=== PATIENT | male | born 1980 | race Caucasian/White ===

== ENCOUNTER 2018-10-03 19:53 | Observation (INO) ==
[2018-10-03] MEDS ORDERED: 0.9 % Sodium Chloride 1,000 ML IVC ONE ×3 (20:18→23:05)
[2018-10-03 20:56] LABS: Basophils # 0.1 K/mcL (0.0-0.2); Eosinophils # 0.1 K/mcL (0.0-0.6); Eosinophils % 0.8 %; Hematocrit 36.4 % (37.5-50.1); Hemoglobin 12.6 g/dL (12.9-16.9); Immature Granulocytes % 0.3 % (0-4); Lymphocytes # 2.2 K/mcL (0.6-4.6); Lymphocytes % 29.7 %; Mean Corpuscular HGB Conc 34.6 g/dL (31.6-35.5); Mean Corpuscular Hemoglobin 32.1 pg (28.0-33.3); Mean Corpuscular Volume 92.6 fL (83.0-100.0); Mean Platelet Volume 11.3 fL (9.4-12.4); Monocytes # 0.5 K/mcL (0.0-1.3); Monocytes % 7.3 %; Neutrophils # 4.4 K/mcL (1.6-8.9); Platelet Count 143 K/mcL (140-400); Red Blood Count 3.93 M/mcL (4.19-5.50); Red Cell Distribution Width 12.6 % (11.5-14.5); Segmented Neutrophils % 60.9 %; White Blood Count 7.3 K/mcL (4.3-11.1)
[2018-10-03 20:59] LABS: VBG HCO3 27 mEq/L (21-27); VBG PCO2 45 mmHg (41-51); VBG PH 7.38 pH Units (7.32-7.42); VBG PO2 55 mmHg (25-50)
[2018-10-03 21:12] LABS: Bilirubin,Urine Negative (Negative); Blood,Urine Negative (Negative); Clarity,Urine Clear (Clear); Color,Urine Yellow (Yellow); Glucose,Urine (UA) >=1000 mg/dL (Normal); Ketones,Urine 15 mg/dL (Negative); Leukocyte Esterase,Urine Negative (Negative); Nitrite,Urine Negative (Negative); PH,Urine 6.5 pH Units (5.0-8.0); Protein,Urine Negative (Neg-Trace); Urobilinogen,Urine Normal (Normal)
[2018-10-03] MEDS ORDERED: Insulin Human Regular 10 UNIT in 0.9 % Sodium Chloride 10 ML IV ONE (21:13)
[2018-10-03 21:14] LABS: BUN/Creatinine Ratio 26 (6-26); Blood Urea Nitrogen 20 mg/dL (6-20); Calcium 8.7 mg/dL (8.6-10.3); Carbon Dioxide 26 mEq/L (23-29); Chloride 96 mEq/L (98-107); Glucose 602 mg/dL (70-105); Osmolality,Calculated 301 (280-300); Sodium 130 mEq/L (136-145); eGFR For African Americans > 60 (> 60); eGFR For Non-African Americans > 60 (> 60)
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
[2018-10-03 21:17] LABS: Amphetamine Screen,Urine Positive ng/mL (Cutoff=1000); Barbiturate Screen,Urine Negative ng/mL (Cutoff=200); Benzodiazepines Screen,Urine Negative ng/mL (Cutoff=200); Cannabinoid Screen,Urine Negative ng/mL (Cutoff = 50); Cocaine Screen,Urine Negative ng/mL (Cutoff= 300); Opiate Screen,Urine Negative ng/mL (Cutoff=300); Phencyclidine Screen,Urine Negative ng/mL (Cutoff=25)
[2018-10-04] MEDS ORDERED: Insulin DETEMIR 100 UNIT/ML per UNIT SQ ONE (00:41)
[2018-10-04] MEDS ORDERED: Insulin Regular, Human 100 UNIT/ML SQ ONE (00:42)
[2018-10-04] MEDS ORDERED: 0.9 % Sodium Chloride 1,000 ML IVC SCH (00:45)
[2018-10-04] MEDS ORDERED: Erythromycin OPTH Oint RIGHT EYE ONE (01:37)
[2018-10-04] MEDS ORDERED: Naloxone 0.4 MG/ML INJ IVP PRN ×2 (01:40→02:41)
[2018-10-04] MEDS ORDERED: *HR* Dextrose 50 % in Water (Syg) 50 ML SYRINGE IVP PRN ×2 (01:45→02:41)
[2018-10-04] MEDS ORDERED: D5% in Water 1,000 ML IVC PRN ×2 (01:45→02:41)
[2018-10-04] MEDS ORDERED: Dextrose Gel 15 GM/37.5 ML TUBE PO PRN ×4 (01:45→02:41)
[2018-10-04] MEDS: 0.9 % Sodium Chloride 1,000 ML IVC SCH ×2 (03:30→07:13)
[2018-10-04 06:35] LABS: BUN/Creatinine Ratio 28 (6-26); Blood Urea Nitrogen 15 mg/dL (6-20); Calcium 8.3 mg/dL (8.6-10.3); Carbon Dioxide 26 mEq/L (23-29); Chloride 109 mEq/L (98-107); Glucose 146 mg/dL (70-105); Osmolality,Calculated 293 (280-300); Potassium 3.3 mEq/L (3.5-5.1); Sodium 140 mEq/L (136-145); eGFR For African Americans > 60 (> 60); eGFR For Non-African Americans > 60 (> 60)
[2018-10-04] MEDS: Insulin LISPRO 300 UNITS/3 ML VIAL SQ SCH ×3 (07:14→16:35)
[2018-10-04] MEDS ORDERED: Insulin LISPRO 300 UNITS/3 ML VIAL SQ SCH ×5 (07:30→21:00)
[2018-10-04] MEDS: clonazePAM 0.5 MG TABLET PO SCH ×2 (09:30→21:57)
[2018-10-04] MEDS: *HR* Metformin 500 MG TABLET PO SCH ×2 (09:30→16:35)
[2018-10-04] MEDS: Pregabalin 75 MG CAPSULE PO SCH ×2 (09:30→21:56)
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
[2018-10-04] MEDS: Tobramycin/Dex Opth DROPS 2.5 ML BOTTLE RIGHT EYE SCH ×2 (13:15→21:55)
[2018-10-04] MEDS: 0.45 % Sodium Chloride w/KCl 20 MEQ/1,000 ML MLS IVC SCH (13:22)
[2018-10-04] MEDS: *HR* OxyCODONE Immed Rel 15 MG TABLET PO PRN ×2 (13:25→22:00)
[2018-10-04] MEDS ORDERED: Insulin DETEMIR 100 UNIT/ML X5UNITS SQ SCH ×2 (21:00)
[2018-10-05] MEDS: 0.45 % Sodium Chloride w/KCl 20 MEQ/1,000 ML MLS IVC SCH (02:44)
[2018-10-05] MEDS: Tobramycin/Dex Opth DROPS 2.5 ML BOTTLE RIGHT EYE SCH (02:45)
[2018-10-05 06:32] VITALS: BP 129/92
[2018-10-05] MEDS: Pregabalin 75 MG CAPSULE PO SCH (08:00)
[2018-10-05] MEDS: clonazePAM 0.5 MG TABLET PO SCH (08:00)
[2018-10-05] MEDS: *HR* Metformin 500 MG TABLET PO SCH (08:00)
[2018-10-05] MEDS: *HR* OxyCODONE Immed Rel 15 MG TABLET PO PRN (08:03)
[2018-10-05] MEDS: Insulin LISPRO 300 UNITS/3 ML VIAL SQ SCH (08:06)
[2018-10-05 08:42] LABS: % Iron Saturation 45 % (20-55); Iron 98 mcg/dL (65-175); Transferrin 156 mg/dL (203-362)
[2018-10-05 08:57] LABS: Ferritin 299 ng/mL (20-250)
[2018-10-05 09:03] LABS: Folate 11.4 ng/mL (3.0-16.0)
[2018-10-05 09:41] LABS: Estimated Average Glucose 372 mg/dl
--- NOTE | 2018-10-05 10:01 | Discharge Summary ---
Date of Encounter: 10/05/18 Time of Encounter: 09:52 - Discharge Diagnosis (1) Hyperglycemia due to type 2 diabetes mellitus Priority: Primary Status: Acute Qualifiers: Diabetes mellitus nursing home insulin use: with long goods drier use Qualified Code(s): E11.65 - Type 2 diabetes mellitus with hyperglycemia; Z79.4 - intermodal dispatcher (current) use of insulin (2) Diabetes mellitus Priority: Secondary Status: Chronic Qualifiers: Diabetes mellitus type: type 2 Diabetes mellitus long goods drier insulin use: with long goods drier use Diabetes mellitus complication status: with ketoacidosis Diabetes mellitus complication detail: without coma Qualified Code(s): E11.10 - Type 2 diabetes mellitus with ketoacidosis without coma; Z79.4 - intermodal dispatcher (current) use of insulin (3) Chronic pain Priority: Secondary Status: Chronic Qualifiers: Chronic pain type: chronic pain syndrome Qualified Code(s): G89.4 - Chronic pain syndrome (4) Anxiety and depression Priority: Secondary Status: Chronic (5) Conjunctivitis Priority: Secondary Status: Acute Qualifiers: Conjunctivitis type: unspecified Laterality: right Qualified Code(s): H10.9 - Unspecified conjunctivitis (6) Anemia Priority: Secondary Status: Acute Qualifiers: Anemia type: unspecified type Qualified Code(s): D64.9 - Anemia, unspecified Hospital course: Mr. García is a 38 year old male who was brought to emergency room after he was found lethargic in a vehicle. Evaluation in the ER showed hyperglycemia with blood sugar 602 MG/DL and drug screen positive for amphetamines. He was admitted to [facility] floor for ongoing care needs. Initial orders were written by the emergency room physician. I saw him on October 04 and performed a history and physical. IV fluids and insulin were given. Blood sugar return to safe range. Hemoglobin A1c returned significantly elevated at 14.6%. His PCP can adjust insulin dose as needed. Anemia testing showed iron 98, transferrin saturation 45%, transferrin 156, ferritin 299, B12 522, and folate 11.4. His PCP can monitor CBC. There were no new problems and on October 05 he felt improved and stable for [facility]. He will follow with his PCP Maura Winters CNP within 1 week. - Time Spent with Patient Total time spent providing and/or coordinating discharge services: - Discharge Medications Prescriptions: New Tobramycin/Dex Opth DROPS [Tobradex Opth Drops] 1 drop RIGHT EYE Q8H 3 Days #1 bottle Continued Oxycodone HCl [Roxybond] 15 mg PO QID PRN PRN Reason: Pain Insulin DETEMIR [Levemir] 10 unit SQ HS #30 [id number] clonazePAM [Clonazepam] 0.5 mg PO BID Metformin HCl [Glucophage] 1,000 mg PO BID Pregabalin [Lyrica] 300 mg PO BID Insulin LISPRO [HumaLOG] 0 units SQ TIDWM Home Medications: Pregabalin [Lyrica] 300 mg PO BID 02/04/15 [History] clonazePAM [Clonazepam] 0.5 mg PO BID 10/24/17 [History] Metformin HCl [Glucophage] 1,000 mg PO BID 10/30/17 [History] Insulin DETEMIR [Levemir] 10 unit SQ HS #30 [id number] 01/05/18 [Rx] Oxycodone HCl [Roxybond] 15 mg PO QID PRN 01/05/18 [History] Insulin LISPRO [HumaLOG] 0 units SQ TIDWM 01/09/18 [History] Tobramycin/Dex Opth DROPS [Tobradex Opth Drops] 1 drop RIGHT EYE Q8H 3 Days #1 bottle 10/05/18 [Rx] Allergies/Adverse Reactions: Allergy/AdvReac Type Severity Reaction Status Date / Time No Known Allergies Allergy Verified 02/23/18 17:42 Date of admission: 10/04/18 02:16 Primary care physician: Maura Winters CNP - Constitutional Vitals: Temp Pulse Resp BP Pulse Ox 98.4 F 75 16 129/92 97 10/05/18 06:26 10/05/18 06:26 10/05/18 06:26 10/05/18 06:26 10/05/18 06:26 - Patient Status Disposition: Home, Self-Care Condition: Fair - Discharge Instructions Follow Up With: Maura Winters CNP [Primary Care Provider] - 1 week - Diet and Activity Activity: resume usual activities as tolerated Diet: diabetic diet - VTE Reasons for not Prescribing Prophylaxis: Treatment not Indicated - Low risk for VTE
== END 2018-10-05 11:10 | disposition home or self-care (01) ==
LOC: EMEROOPIK 19:53 → INPPIK 19:53
PROVIDERS: ADMIT Internal Medicine; ATTEND Internal Medicine